=== PATIENT | female | born 1975 | race African-American/Black ===

== ENCOUNTER 2016-07-31 20:49 | Emergency (ER) | payer OTHER ==
[~2016-07-31 20:49] MED LIST: CHANTIX1 MG; FLEXERIL; LINZESS145 MCG PO; METRONIDAZOLE PO; NO MEDICATIONS
== END 2016-07-31 21:18 | disposition home or self-care (01) ==
LOC: SED 20:49
DX: J02.0 Streptococcal pharyngitis (principal); F17.210 Nicotine dependence, cigarettes, uncomplicated; Z88.5 Allergy status to narcotic agent; Z91.040 Latex allergy status
CPT/HCPCS: 87880; 99282

== ENCOUNTER 2016-08-29 13:53 | Emergency (ER) | payer OTHER | END 2016-08-29 14:19 | disposition home or self-care (01) | LOC: SED 13:53 | DX: M54.6 Pain in thoracic spine (principal); G89.29 Other chronic pain; F17.200 Nicotine dependence, unspecified, uncomplicated; Z88.5 Allergy status to narcotic agent; Z91.040 Latex allergy status | CPT/HCPCS: 99282 ==

== ENCOUNTER 2016-11-15 08:45 | Emergency (ER) | payer OTHER ==
[~2016-11-15] VITALS: Ht 167.6 cm; Wt 72.6 kg
[2016-11-15 09:43] LABS: URINE SOURCE CLEAN CATCH
[2016-11-15 09:48] LABS: URINE APPEARANCE CLEAR; URINE BILIRUBIN NEG (NEG); URINE BLOOD 3+ (NEG); URINE COLOR YELLOW; URINE GLUCOSE NEG (NORM); URINE KETONE NEG (NEG); URINE LEUKOCYTE ESTERASE NEG (NEG); URINE NITRATE NEG (NEG); URINE PH 5.5 (5-8); URINE PROTEIN NEG (NEG); URINE SPECIFIC GRAVITY 1.025 (1.003-1.035); URINE UROBILINOGEN 0.2 MG/DL (NORM)
[2016-11-15 09:51] LABS: MICRO INDICATED? YES
[2016-11-15 09:57] LABS: CULTURE INDICATED? YES; URINE BACTERIA NEG (NEG); URINE MUCUS PRESENT; URINE SQUAMOUS EPITHELIAL CELL MODERATE /[HPF]
[2016-11-15 10:30] LABS: BASOPHIL% 0.5 % (0-2.5); EOSINOPHIL# 0.1 X10e3 (0-0.7); EOSINOPHIL% 1.8 % (0.0-7.0); HEMATOCRIT 37.8 % (35.0-45.0); HEMOGLOBIN 12.8 gm/dL (12.0-16.0); LYMPHOCYTE% 29.5 % (17.0-45.0); MEAN CELL VOLUME 91.5 FL (83-96); MEAN CORPUSCULAR HEMOGLOBIN 31.1 PG (28-34); MEAN PLATELET VOLUME 8.8 FL (6.5-11.5); MONOCYTE# 0.5 X10e3 (0-1.0); MONOCYTE% 7.4 % (3.0-12.0); NEUTROPHIL# 4.2 X10e3 (1.5-7.1); NEUTROPHIL% 60.8 % (40-75); PLATELET COUNT 269 X10e3 (140-420); RED BLOOD COUNT 4.13 X10e (3.90-5.30); RED CELL DISTRIBUTION WIDTH 12.9 % (11.0-15.5); WHITE BLOOD COUNT 6.9 X10e3 (4.0-10.5)
[2016-11-15 10:31] LABS: DIFF IND NO
== END 2016-11-15 10:56 | disposition home or self-care (01) ==
LOC: SED 08:45
PROVIDERS: Emergency Medicine
DX: N93.9 Abnormal uterine and vaginal bleeding, unspecified (principal); K58.9 Irritable bowel syndrome, unspecified; F17.200 Nicotine dependence, unspecified, uncomplicated; Z98.51 Tubal ligation status; Z88.5 Allergy status to narcotic agent; Z91.040 Latex allergy status
CPT/HCPCS: 36415; 81003; 84703; 85025; 87086; 99284

== ENCOUNTER 2017-01-03 09:56 | Emergency (ER) | payer OTHER ==
[~2017-01-03] VITALS: Ht 167.6 cm; Wt 73.9 kg
--- NOTE | ~2017-01-03 | CR126 ---
[facility]. [facility] A Service of [facility] & [facility] RADIOLOGY TEXT RESULTS PATIENT: BISI STALLINGS LOCATION: SED : 73 UNIT #: [id number] AGE: [address]: Nicole Guevara MD SEX: F ORDER DR: [id number] [address] [address] [id number] E MR#: [id number] Acc #: [id number] NAME: BISI STALLINGS : 1975 SEX: F STUDY DATE/TIME: 01/03/2017 11:05 UNIT: SED ROOM: STUDY DESCRIPTION: CR Foot Complete Min 3 View Lt Attending Physician: Nicole Guevara M.D. Ordering Physician: Nicole Guevara M.D. Primary Care Physician: Carolina Vicente A.P.R.N. MEDICAL IMAGING REPORT This report is preliminary unless electronic signature is present. EXAM Left foot, 3 views. INDICATIONS Left foot swelling since September. COMPARISON No comparisons. FINDINGS No fracture or dislocation. Joint spaces are preserved. Soft tissue structures unremarkable. IMPRESSION Negative. Dictated by... Mike Aleman M.D. THIS IS AN ELECTRONICALLY VERIFIED REPORT Mike Aleman M.D. at 01/06/2017 7:19 AM DARION/dm TD: 01/03/2017 22:57 JOB #: [id number] MEDICAL IMAGING REPORT Page 1 of 1
--- NOTE | ~2017-01-03 | CR63 ---
[facility]. [facility] A Service of [facility] RADIOLOGY TEXT RESULTS PATIENT: BISI STALLINGS LOCATION: SED : 73 UNIT #: [id number] AGE: [address]: Nicole Guevara MD SEX: F ORDER DR: [id number] [address] [address] [id number] E MR#: [id number] Acc #: [id number] NAME: BISI STALLINGS : 1975 SEX: F STUDY DATE/TIME: 01/03/2017 11:05 UNIT: SED ROOM: STUDY DESCRIPTION: CR Chest 2 View Attending Physician: Nicole Guevara M.D. Ordering Physician: Nicole Guevara M.D. Primary Care Physician: Carolina Vicente A.P.R.N. MEDICAL IMAGING REPORT This report is preliminary unless electronic signature is present. EXAM PA and lateral chest INDICATIONS There is a history of congestive heart failure. Pedal edema today. No comparisons are available. FINDINGS Heart size upper normal. No definite acute infiltrate. Visualized osseous structures are unremarkable. IMPRESSION No active disease Dictated by... Mike Aleman M.D. THIS IS AN ELECTRONICALLY VERIFIED REPORT Mike Aleman M.D. at 01/07/2017 4:44 PM DARION/raghu TD: 01/03/2017 22:57 JOB #: [id number] MEDICAL IMAGING REPORT Page 1 of 1
--- NOTE | ~2017-01-03 | CR20 ---
[facility]. [facility] A Service of [facility] & [facility] RADIOLOGY TEXT RESULTS PATIENT: BISI STALLINGS LOCATION: SED : [birth year] UNIT #: [id number] AGE: [address]: Nicole Guevara MD SEX: F ORDER DR: [id number] [address] [address] [id number] E MR#: [id number] Acc #: [id number] NAME: BISI STALLINGS : 1975 SEX: F STUDY DATE/TIME: 01/03/2017 11:05 UNIT: SED ROOM: STUDY DESCRIPTION: CR Ankle Min 3 Views Lt Attending Physician: Nicole Guevara M.D. Ordering Physician: Nicole Guevara M.D. Primary Care Physician: Carolina Vicente A.P.R.N. MEDICAL IMAGING REPORT This report is preliminary unless electronic signature is present. EXAM Left ankle, 3 views. INDICATIONS Left ankle pain and swelling since September. COMPARISON No comparisons are available. FINDINGS There is soft tissue swelling about the ankle. No underlying fracture. The alignment is normal. IMPRESSION Soft tissue swelling about the ankle otherwise unremarkable. Dictated by... Mike Aleman M.D. THIS IS AN ELECTRONICALLY VERIFIED REPORT Mike Aleman M.D. at 01/06/2017 7:19 AM DARION/dm TD: 01/03/2017 22:56 JOB #: [id number] MEDICAL IMAGING REPORT Page 1 of 1
[2017-01-03 10:43] LABS: BASOPHIL# 0.1 X10e3 (0-0.3); BASOPHIL% 0.9 % (0-2.5); EOSINOPHIL# 0.2 X10e3 (0-0.7); EOSINOPHIL% 2.1 % (0.0-7.0); HEMATOCRIT 36.1 % (35.0-45.0); HEMOGLOBIN 12.5 gm/dL (12.0-16.0); LYMPHOCYTE# 2.2 X10e3 (1.0-3.5); MEAN CELL VOLUME 90.8 FL (83-96); MEAN CORPUSCULAR HEMOGLOBIN 31.4 PG (28-34); MEAN CORPUSCULAR HGB CONC 34.6 g/dL (30-36); MEAN PLATELET VOLUME 8.3 FL (6.5-11.5); MONOCYTE# 0.4 X10e3 (0-1.0); MONOCYTE% 5.8 % (3.0-12.0); NEUTROPHIL# 4.7 X10e3 (1.5-7.1); NEUTROPHIL% 62.2 % (40-75); PLATELET COUNT 243 X10e3 (140-420); RED BLOOD COUNT 3.97 X10e (3.90-5.30); RED CELL DISTRIBUTION WIDTH 13.2 % (11.0-15.5); WHITE BLOOD COUNT 7.6 X10e3 (4.0-10.5)
[2017-01-03 10:44] LABS: DIFF IND NO
[2017-01-03 11:04] LABS: BILIRUBIN, DIRECT 0.1 mg/dL (0.0-0.2); BILIRUBIN,INDIRECT 0.5 mg/dL (0.0-0.9); BILIRUBIN,TOTAL 0.6 mg/dL (0.2-2.0); BUN/CREATININE RATIO 11.66; CREATININE SERUM 0.6 mg/dL (0.6-1.4); GLOM FILT RATE Estimated 130.3 mL/min (>60); POTASSIUM 3.5 mmol/L (3.5-5.1)
== END 2017-01-03 12:12 | disposition home or self-care (01) ==
LOC: SED 09:56
PROVIDERS: Student in an Organized Health Care Education/Training Program
DX: R60.0 Localized edema (principal); K58.9 Irritable bowel syndrome, unspecified; F17.200 Nicotine dependence, unspecified, uncomplicated; Z88.5 Allergy status to narcotic agent; Z91.040 Latex allergy status
CPT/HCPCS: 36415; 71020; 73610; 73630; 80048; 80076; 83880; 85025; 99284